=== PATIENT | male | born 1940 | race Caucasian/White ===

== ENCOUNTER 2017-02-21 11:52 | Inpatient (IN) | payer OTHER ==
[~2017-02-21] VITALS: Ht 188 cm; Wt 97.8 kg
[~2017-02-21 11:52] MED LIST: BENADRYL25 MG PO; Bactrim,Septra DS 80 PO; CELECOXIB200 MG PO; FLAX OIL1000 MG PO; GARLIC1 EACH PO; HORSE CHESTNUT300 M1 PO; HYDROCODON-ACE1 EAC7 PO; IRON325 MG PO; MEN'S MULTI-VI1 EACH PO; MOBIC15 MG PO; NEURONTIN100 MG PO; OXYCODONE HCL5 MG PO; SENNA PLUS TAB1 EACH PO; TYLENOL REGULA325 MG PO; VENASTAT PO; VITAMIN D31000 UNIT PO; XARELTO10 MG PO
[2017-02-21 15:05] VITALS: BP 141/77
[2017-02-21 15:35] LABS: HEMATOCRIT 34.5 % (38.0-50.0); MCH 31.2 PG (29.0-34.0); MCHC 32.5 G/DL (30.0-36.0); MCV 96.1 FL (86-99); MEAN PLAT.VOLUME 8.5 uM^3 (9.0-12.4); RBC DIS.WIDTH-CV 13.7 % (11.8-14.6); RBC DIS.WIDTH-SD 48.8 % (39-53); RED BLOOD COUNT 3.59 M/uL (4.00-5.50)
[2017-02-21 15:39] LABS: PLATELET COUNT 333 K/uL (156-360); WHITE BLOOD COUNT 11.5 K/uL (4.1-10.2)
[2017-02-21 15:52] LABS: ANION GAP 8 MEQ/L (2-14); CHLORIDE 103 MEQ/L (99-109); POTASSIUM 3.9 MEQ/L (3.7-5.4); SAMPLE HEMOLYSIS CHECK 0; SAMPLE ICTERIC CHECK 0; SAMPLE LIPEMIA CHECK 0; SODIUM 137 MEQ/L (136-147)
[2017-02-21 15:57] LABS: INTER. NORMALIZED RATIO 1.1; PROTHROMBIN TIME 10.9 (9.2-11.2); PTT 30.1 (25-32)
[2017-02-21 15:58] LABS: GFR ESTIMATE (CALCULATED) > 59 mL/min/; GLUCOSE 130 mg/dL (70-99); UREA NITROGEN (BUN) 16 mg/dL (9-23)
[2017-02-21 16:56] LABS: ADD MIUA? YES; BILIRUBIN NEGATIVE; BLOOD NEGATIVE; COLOR YELLOW ((YELLOW)); GLUCOSE (STRIP) NEGATIVE; KETONES NEGATIVE; LEUKOCYTES TRACE; NITRITE NEGATIVE; PROTEIN (STRIP) NEGATIVE; SPECIFIC GRAVITY 1.014 (1.000-1.030); UROBILINOGEN 0.2 MG/DL (0.2-1.0)
[2017-02-21 17:01] LABS: BACTERIA NONE SEEN /HPF; EPITHELIAL CELLS RARE /HPF; MUCUS TRACE /LPF; RED BLOOD CELLS 0-5 /HPF (0-5)
[2017-02-21 23:32] VITALS: BP 178/92
[2017-02-22 08:46] VITALS: BP 136/62
[2017-02-22 13:33] VITALS: BP 149/72
[2017-02-22 16:12] VITALS: BP 147/71
[2017-02-22 23:41] VITALS: BP 135/63
[2017-02-23 03:49] VITALS: BP 131/62
[2017-02-23 06:27] LABS: MCV 94.9 FL (86-99)
[2017-02-23 07:09] LABS: ANION GAP 7 MEQ/L (2-14); CHLORIDE 102 MEQ/L (99-109); GFR ESTIMATE (CALCULATED) > 59 mL/min/; GLUCOSE 127 mg/dL (70-99); POTASSIUM 4.3 MEQ/L (3.7-5.4); SAMPLE HEMOLYSIS CHECK 0; SAMPLE ICTERIC CHECK 0; SAMPLE LIPEMIA CHECK 0; SODIUM 135 MEQ/L (136-147); UREA NITROGEN (BUN) 9 mg/dL (9-23)
[2017-02-23 08:14] VITALS: BP 145/71
[2017-02-23 12:06] VITALS: BP 134/65
[2017-02-23 16:26] VITALS: BP 148/72
[2017-02-23 23:20] VITALS: BP 155/70
[2017-02-24 05:38] LABS: HEMATOCRIT 28.7 % (38.0-50.0); MCV 95.3 FL (86-99)
[2017-02-24 07:30] VITALS: BP 161/77
[2017-02-24 15:13] VITALS: BP 163/76
[2017-02-24 23:48] VITALS: BP 116/56
[2017-02-25 08:29] VITALS: BP 143/69
[2017-02-25 11:09] VITALS: BP 142/71
[2017-02-25] MEDS ORDERED: HYDROCODON-ACE1 EAC7 PO (16:00)
[2017-02-25 16:42] VITALS: BP 142/64
[2017-02-25] MEDS ORDERED: ANCEF,KEFZ2 GM/100 M IV (18:10)
[2017-02-25 23:18] VITALS: BP 142/82
[2017-02-26 08:30] VITALS: BP 150/72
== END 2017-02-26 12:27 | DRG 465 ==
LOC: 3EAST 11:52
PROVIDERS: Orthopaedic Surgery
DX: T84.54XA Infection and inflammatory reaction due to internal left knee prosthesis, initial encounter (principal); B95.61 Methicillin susceptible Staphylococcus aureus infection as the cause of diseases classified elsewhere; Y83.1 Surgical operation with implant of artificial internal device as the cause of abnormal reaction of the patient, or of later complication, without mention of misadventure at the time of the procedure; G89.18 Other acute postprocedural pain; M25.562 Pain in left knee; M25.462 Effusion, left knee; Z87.891 Personal history of nicotine dependence; L29.9 Pruritus, unspecified
CPT/HCPCS: 36415; 71010; 76937; 80048; 81003; 85014; 85018; 85027; 85610; 85730; 86850; 86900; 86901; 87040; 87070; 87075; 87077; 87086; 87086 GA; 87147; 87186; 87205; 87493; 89051; 93005; C1713; J0131; J0171; J0690; J1170; J1885; J2405; J3010; J3370; J7050; Q0177; S0020; S0032

== ENCOUNTER 2017-06-12 21:40 | Inpatient (IN) | payer OTHER ==
[~2017-06-12] VITALS: Ht 188 cm; Wt 95.3 kg
[~2017-06-12 21:40] MED LIST changes: +ANCEF,KEFZ2 GM/100 M IV; +GARLIC1000 MG PO; +MULTIPLE VITAM1 EACH PO
[2017-06-13 10:41] VITALS: BP 161/82
[2017-06-13 18:27] VITALS: BP 152/85
[2017-06-13 20:18] VITALS: BP 184/84
[2017-06-13 20:30] VITALS: BP 164/78
[2017-06-14 00:29] VITALS: BP 157/68
[2017-06-14 05:33] VITALS: BP 148/71
[2017-06-14 07:27] VITALS: BP 155/73
[2017-06-14 07:41] LABS: HEMATOCRIT 35.9 % (38.0-50.0); MCV 93.2 FL (86-99)
[2017-06-14 08:01] LABS: ANION GAP 4 MEQ/L (2-14); CHLORIDE 102 MEQ/L (99-109); GFR ESTIMATE (CALCULATED) > 59 mL/min/; GLUCOSE 169 mg/dL (70-99); POTASSIUM 4.5 MEQ/L (3.7-5.4); SAMPLE HEMOLYSIS CHECK 0; SAMPLE ICTERIC CHECK 0; SAMPLE LIPEMIA CHECK 0; SODIUM 138 MEQ/L (136-147); UREA NITROGEN (BUN) 17 mg/dL (9-23)
[2017-06-14 16:34] VITALS: BP 141/67
[2017-06-15 00:45] VITALS: BP 136/67
[2017-06-15 07:02] LABS: HEMATOCRIT 31.6 % (38.0-50.0); MCV 93.5 FL (86-99)
[2017-06-15 09:06] VITALS: BP 138/62
[2017-06-15 22:00] VITALS: BP 135/87
[2017-06-15 23:40] VITALS: BP 145/67
[2017-06-16 08:07] VITALS: BP 129/62
[2017-06-16] MEDS ORDERED: SENNA PLUS TAB1 EACH PO (10:39)
[2017-06-16] MEDS ORDERED: BISACODYL5 MG PO (10:39)
[2017-06-16] MEDS ORDERED: CELECOXIB200 MG PO (10:39)
[2017-06-16] MEDS ORDERED: HYDROCODON-ACE1 EAC9 PO (10:39)
[2017-06-16] MEDS ORDERED: VIBRAMYCIN100 MG PO (12:01)
== END 2017-06-16 15:53 | disposition home or self-care (01) | DRG 468 ==
LOC: ENRESERV 21:40 → 2SOUTH 06-13 08:56 → ENRESERV 06-13 13:33 → 2SOUTH 06-13 14:52 → 3EAST 06-13 18:04
PROVIDERS: Orthopaedic Surgery
DX: T84.54XA Infection and inflammatory reaction due to internal left knee prosthesis, initial encounter (principal); G89.29 Other chronic pain; B99.8 Other infectious disease
CPT/HCPCS: 80048; 85014; 85018; 87070; 87075; 87102; 87205; C1713; J0131; J0690; J1170; J1885; J2250; J2405; J2795; J3010; J7050